=== PATIENT | female | born 1960 | race Caucasian/White ===

== ENCOUNTER → 2016-11-26 | Outpatient (CLI) | payer BC ==
[~2016-11-26] MED LIST: ALDACTONE25 MG PO; AMLODIPINE BESY10 MG PO; BELVIQ10 MG PO; DIOVAN HCT 1601 EAC1 PO; DIOVAN40 MG PO; FLEXERIL PO; GLUCOPHAGE500 MG PO; LIPITOR80 MG PO; NORCO 5-325 TA1 EACH PO; NORFLEX100 MG PO; VANIQA60 GM TOP
== END ==
LOC: ULTRA 11:29
DX: R10.11 Right upper quadrant pain (principal)

== ENCOUNTER → 2017-05-28 | Outpatient (CLI) | payer BC | LOC: RAD 16:25 | DX: S99.922A Unspecified injury of left foot, initial encounter (principal); X58.XXXA Exposure to other specified factors, initial encounter; Y93.89 Activity, other specified; Y92.89 Other specified places as the place of occurrence of the external cause; Y99.8 Other external cause status ==

== ENCOUNTER → 2018-06-29 | Outpatient (CLI) | payer BC | LOC: RAD 15:05 | DX: M77.32 Calcaneal spur, left foot (principal) ==

== ENCOUNTER → 2018-12-29 | Outpatient (CLI) | payer BC | LOC: RAD 09:06 | DX: Z12.31 Encounter for screening mammogram for malignant neoplasm of breast (principal) ==

== ENCOUNTER → 2019-02-23 | Outpatient (CLI) | payer BC | LOC: MRI 10:11 | DX: M47.22 Other spondylosis with radiculopathy, cervical region (principal); M48.02 Spinal stenosis, cervical region; M50.121 Cervical disc disorder at C4-C5 level with radiculopathy; M25.78 Osteophyte, vertebrae ==

== ENCOUNTER → 2019-03-10 | Outpatient (CLI) | payer BC ==
[~2019-03-10] VITALS: Ht 167.6 cm; Wt 103.9 kg
[~2019-03-10] MED LIST changes: +APPLE CIDER VI500 MG PO; +B COMPLEX1 EACH PO; +COQ-10100 MG PO; +COZAAR 25 MG TA25 M1 PO; +EVENING PRIMRO1 EACH PO; +FISH OIL 1,001000 M2 PO; +HYDROCHLOROTHIA25 M1 PO; +LEXAPRO 10 MG T10 M1 PO; +SUPER THERAVIT1 EACH PO; +VITAMIN C500 M1 PO; +VITAMIN D3 COM1 EACH PO
[2019-03-10 13:53] VITALS: BP 147/82
--- NOTE | 2019-03-10 14:09 | NUR ---
Pain Clinic Assessment: 1. History of Osteoarthritis: NONE History of Rheumatoid Arthritis: NONE 2. Height: 5 ft. 6 in. 167.6 cm. Weight: 229.0 lb. oz. 103.874 kg. Patient's BMI: 37.0 3. Vital Signs: BP: 147/82 Pulse: 75 Resp: 16 Temp: 02 Sat: 100 ECG Mon: 4. Pain Intensity: 7 5. Fall Risk: Dizziness: N Needs help standing or walking: N Fallen in the last 3 months: N Fall risk comments: 6. Patient on Blood Thinner: None 7. History of Hypertension: Y 8. Opioid Therapy greater than 6 weeks: Opiate Contract Signed: 9. Risk Assessment Tool Provided: 10. Functional Assessment Tool: 11. Recreational Drug Use: Never Drug Type: Tobacco Use: Never Smoker Tobacco Type: Amount or Packs/day: How Many Years: Alcohol Use: Yes Frequency: Special Occasions Quant: 1 GLASS
--- NOTE | 2019-03-29 10:05 | HPC ---
[facility] [place] [address] PAIN MANAGEMENT CONSULTATION Name: LENA ROACH Room #: REG [facility] Bhargav#: [id number] Admission: 03/10/19 Attend Phys: Mike Velazquez DO Discharge: Date of : 58 Report #: [id number] THIS REPORT FOR: //name// CC: Isidro Mcleod MD DATE OF SERVICE: 03/10/2019 CHIEF COMPLAINT: Neck pain. HISTORY OF PRESENT ILLNESS: As you know, the patient is a 58-year-old female who reports acute onset of neck pain that began 02/12/2019. The patient states she was in her normal state of health when this "neck popping" began. She tried nonsteroidal anti-inflammatories, rest, relaxation, but none of this was beneficial for pain control. She was given a Medrol Dosepak, which also provided no benefit. The patient denies onset of numbness, tingling or electrical like sensations in the cervical region or into the upper extremities. Due to lack of improvement with conservative treatment, the patient was sent for imaging of the cervical spine, the findings of this MRI showed changes at C4-C5 and C5-C6. The most extensive at the C5-C6 level with a broad-based left central disk protrusion completely effacing the cerebrospinal fluid anteriorly and narrowing the cord to 8 mm. Due to these findings, the patient was referred to our clinic to discuss options for treatment. The patient indicates today pain is steady, describes the pain as aching, stabbing, intermittent numbness and tingling. Places current pain score 7/10, daily average is 7/10, worst pain has been is 10/10. The patient states that bending her neck and extending her neck exacerbates symptoms as well as looking down. Pain is improved with heating pads. She has been referred to our service to discuss treatment options for suspected cervical radiculopathy. PAST MEDICAL HISTORY: 1. Hypertension. 2. High cholesterol. 3. Polycystic ovarian disease. PAST SURGICAL HISTORY: 1. Carpal tunnel release. 2. section. 3. Oral surgery. SOCIAL HISTORY: The patient denies tobacco, alcohol, IV or illicit drug use. She is in [employer]. She is working, not receiving workmen's compensation or she is trying to obtain disability benefits. She is not in [address] [place] [address] PAIN MANAGEMENT CONSULTATION Name: LENA ROACH Room #: REG RASHE[facility] Durant#: [id number] Admission: 03/10/19 Attend Phys: Mike Velazquez DO Discharge: Date of : 58 Report #: [id number] litigation in regards to her pain. She is unaccompanied today. REVIEW OF SYSTEMS: Positive for fatigue and weakness, frequent and recurrent headaches, wearing corrective eyewear, hearing loss with tinnitus, earaches with drainage, neck pain. All other review of systems negative per 12-point review of systems other than those listed in history of present illness. Pain impact score 13/70 indicating mild interference of daily activities secondary to pain. ALLERGIES: NO KNOWN DRUG ALLERGIES. CURRENT MEDICATIONS: Atorvastatin 80 mg per day, metformin 500 mg b.i.d., losartan 25 mg per day, Lexapro 10 mg per day, hydrochlorothiazide 25 mg once a day, omega-3 fish oil 1 tab per day, cider vinegar 500 mg once a day, Bath oil soft gel cap once a day, vitamin C1 500 mg once a day, vitamin B complex 1 tab per day, multivitamin 1 tab per day, Coenzyme Q 100 mg once a day. IMAGING: MRI cervical spine obtained on 02/23/2019 shows C1-C2 unremarkable. C2-C3 unremarkable, C3-C4 mild uncovertebral joint changes and mild posterior facet arthropathy. C4-C5 focal disk protrusion abutting the anterior thecal sac and reducing the sac to 8 mm consistent with [id number] central canal stenosis, no significant neural foraminal narrowing. C5-C6, broad-based central left paracentral disk protrusion with uncovertebral hypertrophy, moderate posterior facet degenerative changes completely effacing the CSF anteriorly, narrowing the canal to 8 mm with [id number] central canal stenosis, severe left neural foraminal narrowing. C6-C7 generalized disk bulge, posterolateral uncovertebral joint changes, mildly narrowing canal to 10 mm, mild bilateral neural foraminal narrowing. C7-T1 unremarkable. PHYSICAL EXAMINATION: VITAL SIGNS: Blood pressure 147/82, pulse 75, respiratory rate 16 and unlabored. The patient is 100% on room air. Height 5 feet 6 inches tall, weight 229 pounds, BMI calculated 37. GENERAL: Well-developed, well-nourished, well-hydrated exogenously obese 58-year-old female appearing stated age. Pain is rated around 7/10. HEENT: Normocephalic, atraumatic. Pupils equal, round, reactive to light. Extraocular muscles are intact. Sclerae nonicteric without injection. NEUROLOGIC: Cranial nerves 2-12 grossly intact. Speech fluent. The patient deemed a good historian. LUNGS: Clear, no wheeze, rhonchi or rales. CARDIOVASCULAR: Regular. No appreciable gallop, no rub. ABDOMEN: Soft, obese, normoactive bowel sounds. EXTREMITIES: Show no clubbing, no cyanosis, and no edema. MUSCULOSKELETAL: Upper extremity strength appears equal and symmetrical 5/5, intact to light touch from C5-T1 dermatomes. Deep tendon reflexes are equal and [facility] [address] [place] [address] PAIN MANAGEMENT CONSULTATION Name: LENA ROACH Room #: REG [facility].#: [id number] Admission: 03/10/19 Attend Phys: Mike Velazquez DO Discharge: Date of : 58 Report #: [id number] symmetrical at biceps, brachialis and triceps. Spurling's test positive left, negative right. Cervical provocation testing is met with increased pain. There is mild crepitus noted with rotation and lateral flexion bilaterally. ASSESSMENT: 1. Cervical radiculopathy. 2. Cervical spinal stenosis. 3. Displacement of cervical intervertebral disk with radiculopathy. 4. Cervical spondylosis with radiculopathy. PLAN: 1. Based on today's physical exam and history the patient has provided, the description the patient uses in regards to pain as well as location of symptoms and provocating factors as well as the findings of the MRI dated 02/23/2019, likely source of the patient's pain is cervical radiculopathy. The patient's cervical area at the C4-C5 and C5-C6 levels have significant changes causing central canal stenosis at both levels with diminishing of the space for the spinal cord all the way down to 8 mm. We discussed this with the patient today. After the discussion of the findings of her cervical MRI, we discussed the treatment options available. The following was discussed with the patient today. We discussed physical therapy, stretching exercises and traction techniques as a way to treat the patient's ongoing symptoms and the findings of the MRI, which shows foraminal narrowing, which can be alleviated with traction as well as will improve mobility of the neck. We discussed medication management utilizing neuropathic pain medications such as amitriptyline, nortriptyline, Lyrica, Cymbalta or gabapentin. We discussed cervical epidural injections under fluoroscopic guidance to address cervical radicular symptoms. We also discussed cervical facet injections if symptoms remain axial in nature and there is no radiation of symptoms as there is a high possibility of multifactorial pain generated in this patient. We also discussed surgical options, which may ultimately be necessary. After reviewing of all the proposed treatment options, the patient chose to begin with physical therapy initially. If this is unsuccessful, then move forward with a cervical epidural injection. 2. The patient was provided a referral to physical therapy to begin as quickly as possible. We have offered her 3 visits a week for 6 weeks. They are to utilize evaluation and treatment typical for cervical radiculopathy, but also add modalities and traction to address symptoms more readily. The patient will begin the physical therapy as quickly as possible. She was given a prescription in written form. We will see her back in followup visit after she has been evaluated and treated for at least 2-3 weeks. 3. We will consider the possibility of having the patient undergo a cervical epidural injection. Authorization will have to be obtained before the patient could undergo the cervical epidural injection. We will begin this process. [address] [address] PAIN MANAGEMENT CONSULTATION Name: LENA ROACH Room #: REG CLBill Durant#: [id number] Admission: 03/10/19 Attend Phys: Mike Velazquez DO Discharge: Date of : 58 Report #: [id number] Once it has been completed, we will have the patient return if it is necessary for the patient to undergo cervical epidural injection. Authorization will be initiated based on response to her physical therapy. She will contact our clinic in regards to this issue. 4. We wish to thank Dr. Mcleod for the referral of patient to our clinic. We made no changes in the medication today and recommend that we use conservative treatment initially. If this fails, then move forward with more aggressive treatment options. Again, we wish to thank you for the opportunity to see this patient in consultation. <ELECTRONICALLY SIGNED> By: Mike Velazquez DO 03/29/19 [id number] Mike Velazquez DO /nt
== END ==
LOC: PAIN 07:03
DX: M47.22 Other spondylosis with radiculopathy, cervical region (principal); M48.02 Spinal stenosis, cervical region; M50.10 Cervical disc disorder with radiculopathy, unspecified cervical region

== ENCOUNTER → 2020-03-02 | Outpatient (CLI) | payer BC | LOC: BC 13:23 | PROVIDERS: ATTEND Family Medicine | DX: Z12.31 Encounter for screening mammogram for malignant neoplasm of breast (principal) ==

== ENCOUNTER → 2021-03-06 | Outpatient (CLI) | payer BC | LOC: BC 09:53 | PROVIDERS: ATTEND Family Medicine | DX: Z12.31 Encounter for screening mammogram for malignant neoplasm of breast (principal); N64.89 Other specified disorders of breast ==